=== PATIENT | female | born 2000 | race African-American/Black ===

== ENCOUNTER 2020-12-03 13:07 | Emergency (ER) | payer SELFPAY ==
[~2020-12-03 13:07] MED LIST: Sodium Chloride 0.9% 1,000 ML BAG ONE
[2020-12-03] MEDS ORDERED: Metoclopramide HCl 10 MG/2 ML VIAL ONE (13:58)
[2020-12-03] MEDS ORDERED: diphenhydrAMINE 50 MG/ML VIAL ONE (13:58)
[2020-12-03 14:10] LABS: #Basophils 0.1 thou/uL (0.0-0.2); #Monocytes 0.6 thou/uL (0.11-0.59); #Neutrophils 6.1 thou/uL (1.40-6.50); %Basophils 1.2 % (0.0-1.0); %Eosinophils 0.5 % (0.0-10.0); %Lymphocytes 22.4 % (28.0-48.0); %Monocytes 6.6 % (0.0-4.0); %Neutrophils 69.4 % (31.0-61.0); Hemoglobin 13.9 g/dL (12.0-16.0); Mean Corpuscular HGB CONC 30.8 g/dL (32.0-36.0); Mean Corpuscular Hemoglobin 27.1 pg (25.0-35.0); Mean Platelet Volume 8.8 fL (7.4-10.4); Platelet Count 310 thou/uL (130-400); RBC Distribution Width 12.1 % (11.5-14.5); Red Blood Cell (RBC) Count 5.15 mill/uL (4.00-5.20); White Blood Cell (WBC) Count 8.8 thou/uL (4.8-10.8)
[2020-12-03 14:13] LABS: Bilirubin Small (Negative); Blood, Urine Negative (Negative); Clarity Slightly Cloudy (Clear); Glucose, Urine (Dipstick) Negative (Negative); Ketone, Urine 40 mg/dL (Negative); Leukocyte Small (Negative); Nitrite Negative (Negative); Protein, Urine (Dipstick) 100 mg/dL (Neg-Trace); pH, Urine 7.5 (5.0-9.0)
[2020-12-03 14:14] LABS: Bacteria/HPF Rare-Few HPF (None Seen); RBC/HPF 0-3 HPF (0-3)
[2020-12-03 14:21] LABS: PTT 29.7 sec (22.9-36.1); Prothrombin Time 13.7 sec (12.0-14.7)
[2020-12-03 14:27] LABS: BHCG - Serum POSITIVE (NEGATIVE); Pregs Control Background? CLEAR/WHITE (CLR/WHITE); Pregs Control Bar Appear? YES (CONTROL BAR)
[2020-12-03 14:34] LABS: ALT (SGPT) 8 U/L (8-55); AST (SGOT) 14 U/L (5-34); Albumin 4.9 g/dL (3.5-5.0); Alkaline Phosphatase 48 U/L (40-100); Anion Gap 15 mmol/L (10-20); BUN (Urea Nitrogen) 5 mg/dL (7.0-18.7); Bilirubin, Total 0.6 mg/dL (0.2-1.2); Calc. Creatinine Clearance 0 mL/min (70-130); Calcium 9.8 mg/dL (7.8-10.44); Carbon Dioxide 24 mmol/L (22-29); Chloride 103 mmol/L (98-107); Globulin 3.2 g/dL (2.4-3.5); Glucose 75 mg/dL (70-105); Potassium 3.6 mmol/L (3.5-5.1); Protein, Total 8.1 g/dL (6.0-8.3); Sodium 138 mmol/L (136-145)
[2020-12-03 15:10] LABS: Lipase 10 U/L (8-78)
== END 2020-12-03 15:35 | disposition home or self-care (01) ==
LOC: MADERS 13:07
DX: O99.891 Other specified diseases and conditions complicating pregnancy (principal); R51.9 Headache, unspecified; O21.9 Vomiting of pregnancy, unspecified
CPT/HCPCS: 36415; 80053; 81003; 81015; 83690; 84703; 85025; 85610; 85730; 96365; 96375; J1200; J2765; J7050